=== PATIENT | male | born 1955 | race Hispanic/Latino ===

== ENCOUNTER 2018-05-14 19:54 | Inpatient (IN) | payer BC, SELFPAY ==
[2018-05-14] MEDS ORDERED: ACETAMINOPHEN 500 MG TAB ONE (20:48)
[2018-05-14] MEDS ORDERED: NA CHLORIDE 0.9% 2,000 ML ONE (20:48)
[2018-05-14 20:58] LABS: Urine Blood TRACE (NEG); Urine Glucose 2+ (NEG); Urine Protein 1+ (NEG); Urine pH 5.5 (5.0-7.0)
[2018-05-14 21:07] LABS: Absolute Lymphocytes (CBC) 5.3 K/uL (0.7-4.9); Absolute Monocytes 0.8 K/uL (0.1-1.3); Absolute Neutrophil 5.4 K/uL (1.8-8.0); Basophils % 0.6 % (0-1.3); Hematocrit 41.5 % (39.6-49.0); MPV 9.6 fL (7.6-11.3); Monocytes % 6.6 % (3.3-12.3)
[2018-05-14 21:13] LABS: Urine Bacteria <20 /HPF (NONE SEEN); Urine Culture Reflex Order NOT NEEDED; Urine Mucus LIGHT /HPF (NONE SEEN); Urine RBC <5 /HPF (NONE SEEN); Urine Yeast PRESENT (NONE SEEN)
[2018-05-14 21:17] LABS: Protime INR 1.06
[2018-05-14 21:25] LABS: ALT/SGPT 101 U/L (12-78); AST/SGOT 71 U/L (15-37); Albumin 2.5 g/dL (3.4-5.0); Alkaline Phosphatase 197 U/L (45-117); BUN Blood Urea Nitrogen 19 mg/dL (7-18); Bicarbonate 26 mmol/L (21-32); Bilirubin Direct 0.2 mg/dL (0-0.2); Bilirubin Total 0.9 mg/dL (0.2-1.0); CKMB Creatine Kinase MB < 1.0 ng/mL (0.3-3.6); Creatine Phosphokinase 78 U/L (39-308); Glucose Level 292 mg/dL (74-106); Lipase 165 U/L (73-393); Protein, Total 6.3 g/dL (6.4-8.2); Sodium Level 133 mmol/L (136-145); Troponin (Emerg Dept Use Only) < 0.02 ng/mL (0.0-0.045)
[2018-05-14 21:46] LABS: Blood Morphology Comment NOT SEEN (NOT SEEN); Platelet Estimate ADEQ
--- NOTE | 2018-05-15 00:14 | ER ---
Nurse's Notes [facility] Name: Edu Carmona Age: 62 yrs Sex: Male : 1955 Arrival Date: 05/14/2018 Time: 19:56 Bed 26 Private MD: Diagnosis: Bacteremia Presentation: 05/14 20:09 Presenting complaint: states: my has fever, headache, dizziness and high mg2 blood sugar of 400 mg/dl at home. Transition of care: patient was not received from another setting of care. Onset of symptoms was April 2018. Risk Assessment: Do you want to hurt yourself or someone else? Patient reports no desire to harm self or others. Initial Sepsis Screen: Does the patient meet any 2 criteria? No. Patient's initial sepsis screen is negative. Does the patient have a suspected source of infection? No. Patient's initial sepsis screen is negative. Care prior to arrival: None. 20:09 Method Of Arrival: Ambulatory mg2 20:09 Acuity: DOMINIC 3 mg2 Triage Assessment: 20:27 Headache History: The patient has had previous headaches. General: Appears in no mg2 apparent distress. comfortable, Behavior is calm, cooperative. Pain: Complains of pain in head Pain does not radiate. Pain currently is 8 out of 10 on a pain scale. Quality of pain is described as aching, Pain began gradually, Is intermittent, Also complains of no other associated symptoms. EENT: No signs and/or symptoms were reported regarding the EENT system. Neuro: Level of Consciousness is awake, alert, obeys commands, Oriented to person, place, time, situation. Neuro: Reports dizziness. Cardiovascular: Capillary refill < 3 seconds Patient's skin is warm and dry. Respiratory: Reports cough that is Airway is patent Respiratory effort is even, unlabored, Respiratory pattern is regular, symmetrical. GI: No signs and/or symptoms were reported involving the gastrointestinal system. : No signs and/or symptoms were reported regarding the genitourinary system. Derm: Skin is intact, is healthy with good turgor, Skin is pink, warm \T\ dry. normal. Musculoskeletal: Circulation, motion, and sensation intact. Capillary refill < 3 seconds. Historical: - Allergies: 20:12 No Known Allergies; mg2 - Home Meds: 20:12 Lisinopril Oral [Active]; Metformin Oral [Active]; Indomethacin Oral [Active]; mg2 - PMHx: 20:12 Diabetes - NIDDM; Hypertension; Arthritis; mg2 - PSHx: 20:12 None; mg2 - Immunization history:: Flu vaccine is not up to date. - Social history:: Smoking status: Patient/guardian denies using tobacco, Patient/guardian denies using alcohol, street drugs, IV drugs. - Ebola Screening: : No symptoms or risks identified at this time. Screenin:29 Abuse screen: Denies threats or abuse. Denies injuries from another. Nutritional mg2 screening: No deficits noted. Tuberculosis screening: No symptoms or risk factors identified. Fall Risk None identified. Assessment: 20:29 Reassessment: pls see triage assessment. mg2 05/15 00:47 Reassessment: patient and family informed about the need for hospitalization and he mg2 agreed for the plan. 01:12 Reassessment: COLIN Del Rio was called and said the assigned nurse will call me back [place] [facility] [place] [place]. Vital Signs: 05/14 20:10 BP 117 / 75; Pulse 114; Resp 18; Temp 101.4; Pulse Ox 94% on R/A; Weight 122.47 kg; mg2 Height 5 ft. 8 in. (172.72 cm); Pain 8/10; 22:06 BP 102 / 62; Pulse 88; Resp 18; Temp 98.1(O); Pulse Ox 94% on R/A; mg2 23:38 BP 113 / 56; Pulse 77; Resp 18; Pulse Ox 94% on R/A; Pain 3/10; mg2 05/15 00:46 BP 124 / 64; Pulse 79; Resp 18; Temp 98.2; Pulse Ox 94% on R/A; Pain 0/10; mg2 05/14 20:10 Body Mass Index 41.05 (122.47 kg, 172.72 cm) mg2 ED Course: 05/14 19:56 Patient arrived in ED. am2 20:09 Rolando Merino, COLIN is Primary Nurse. mg2 20:10 Triage completed. mg2 20:22 Bay Rosario PA is PHCP. jr8 20:22 Hugo Loco MD is Attending Physician. jr8 20:27 Patient has correct armband on for positive identification. Bed in low position. Pulse mg2 ox on. NIBP on. 20:29 Arm band placed on. mg2 20:57 No provider procedures requiring assistance completed. EKG done, by ED staff, reviewed mg2 by Bay CANELA. Inserted saline lock: 20 gauge in right forearm, using aseptic technique. Blood collected. 21:10 X-ray completed. Portable x-ray completed in exam room. Patient tolerated procedure tm4 well. 21:11 Chest Single View XRAY In Process Unspecified. EDMS 22:47 CT Abd/Pelvis - W/Contrast In Process Unspecified. EDMS 05/15 00:13 Yamilet Cruz MD is Hospitalizing Provider. jr8 01:19 Patient admitted, IV remains in place. mg2 Administered Medications: 05/14 20:54 Drug: NS 0.9% (30 ml/kg) 30 ml/kg Route: IV; Rate: bolus; Site: right forearm; mg2 22:17 Follow up: Response: No adverse reaction; IV Status: Completed infusion mg2 20:54 Drug: Tylenol 1000 mg Route: PO; mg2 22:17 Follow up: Response: No adverse reaction; Temperature is decreased mg2 05/15 00:45 Drug: Zosyn 3.375 grams Route: IVPB; Infused Over: 60 mins; Site: right forearm; mg2 01:12 Follow up: Response: No adverse reaction; IV Status: Infusion continued upon admission mg2 00:46 Drug: DiFLUcan 150 mg Route: PO; mg2 01:11 Follow up: Response: No adverse reaction mg2 Point of Care Testing: Blood Glucose: 05/14 20:30 Blood Glucose: 279 mg/dL; mg2 Ranges: Outcome: 05/15 00:14 Decision to Hospitalize by Provider. jr8 01:19 Admitted to Med/surg accompanied by tech, via wheelchair, room 211, with chart, Report mg2 called to COLIN Justice 01:19 Condition: stable 01:19 Instructed on the need for admit, Demonstrated understanding of instructions. 01:30 Patient left the ED. mg2 Signatures: Dispatcher [employer] EDNE Megan Raya tm4 Bay Rosario PA PA jr8 Anita Rey 2 Rolando Merino RN RN mg2
--- NOTE | 2018-05-15 00:15 | EDPHYS ---
Physician Documentation [facility] Name: Edu Carmona Age: 62 yrs Sex: Male : 1955 Arrival Date: 05/14/2018 Time: 19:56 Bed 26 Private MD: ED Physician Hugo Loco HPI: 05/14 20:26 This 62 yrs old Male presents to ER via Ambulatory with complaints of jr8 Dizziness, Headache, High Blood Sugar. 20:26 The patient presents with dizziness, generalized weakness. Onset: The symptoms/episode jr8 began/occurred 4 day(s) ago. Associated signs and symptoms: Pertinent positives: headache, fever, elevated blood glucose, Pertinent negatives: abdominal pain, chest pain, nausea, vomiting. Severity of symptoms: At their worst the symptoms were mild. Patient's baseline: Neuro: alert and fully oriented, Motor: no deficits, Ambulation: walks without assistance, Speech: normal, The patient has a previous history of. The patient has not recently seen a physician, and does not have an established primary care provider. Historical: - Allergies: 20:12 No Known Allergies; mg2 - Home Meds: 20:12 Lisinopril Oral [Active]; Metformin Oral [Active]; Indomethacin Oral [Active]; mg2 - PMHx: 20:12 Diabetes - NIDDM; Hypertension; Arthritis; mg2 - PSHx: 20:12 None; mg2 - Immunization history:: Flu vaccine is not up to date. - Social history:: Smoking status: Patient/guardian denies using tobacco, Patient/guardian denies using alcohol, street drugs, IV drugs. - Ebola Screening: : No symptoms or risks identified at this time. ROS: 20:29 Constitutional: Positive for body aches, chills, fatigue, fever, malaise, Negative for jr8 poor PO intake, weight loss. 20:29 Eyes: Negative for blurry vision, visual disturbance. 20:29 ENT: Negative for rhinorrhea, sinus congestion, sinus pain, sore throat. 20:29 Cardiovascular: Negative for chest pain, orthopnea, palpitations. 20:29 Respiratory: Positive for cough, with no reported sputum, Negative for orthopnea, shortness of breath, sputum production, wheezing. 20:29 Abdomen/GI: Positive for increased hunger, Negative for abdominal pain, nausea and vomiting, nausea, vomiting, and diarrhea, anorexia, acute changes. 20:29 : Negative for hematuria, flank pain, burning with urination, difficulty urinating. 20:29 Skin: Negative for cellulitis, rash, acute changes. Exam: 20:31 Constitutional: This is a well developed, well nourished patient who is awake, alert, jr8 and in no acute distress. Head/Face: Normocephalic, atraumatic. Eyes: Pupils equal round and reactive to light, extra-ocular motions intact. Lids and lashes normal. Conjunctiva and sclera are non-icteric and not injected. Cornea within normal limits. Periorbital areas with no swelling, redness, or edema. ENT: Nares patent. No nasal discharge, no septal abnormalities noted. Tympanic membranes are normal and external auditory canals are clear. Oropharynx with no redness, swelling, or masses, exudates, or evidence of obstruction, uvula midline. Mucous membranes moist. Chest/axilla: Normal chest wall appearance and motion. Nontender with no deformity. No lesions are appreciated. Cardiovascular: Regular rate and rhythm with a normal S1 and S2. No gallops, murmurs, or rubs. Normal PMI, no JVD. No pulse deficits. Respiratory: Lungs have equal breath sounds bilaterally, clear to auscultation and percussion. No rales, rhonchi or wheezes noted. No increased work of breathing, no retractions or nasal flaring. Skin: Warm, dry with normal turgor. Normal color with no rashes, no lesions, and no evidence of cellulitis. MS/ Extremity: Pulses equal, no cyanosis. Neurovascular intact. Full, normal range of motion. Neuro: Awake and alert, GCS 15, oriented to person, place, time, and situation. Cranial nerves II-XII grossly intact. Motor strength 5/5 in all extremities. Sensory grossly intact. Cerebellar exam normal. Normal gait. 20:31 Abdomen/GI: Exam negative for distension, guarding, tenderness, Inspection: obese Bowel sounds: normal, in all quadrants. Vital Signs: 20:10 BP 117 / 75; Pulse 114; Resp 18; Temp 101.4; Pulse Ox 94% on R/A; Weight 122.47 kg; mg2 Height 5 ft. 8 in. (172.72 cm); Pain 8/10; 22:06 BP 102 / 62; Pulse 88; Resp 18; Temp 98.1(O); Pulse Ox 94% on R/A; mg2 23:38 BP 113 / 56; Pulse 77; Resp 18; Pulse Ox 94% on R/A; Pain 3/10; mg2 05/15 00:46 BP 124 / 64; Pulse 79; Resp 18; Temp 98.2; Pulse Ox 94% on R/A; Pain 0/10; mg2 05/14 20:10 Body Mass Index 41.05 (122.47 kg, 172.72 cm) mg2 MDM: 05/14 20:52 Patient medically screened. jr8 05/15 00:13 Data reviewed: vital signs, nurses notes, lab test result(s), EKG, radiologic studies, jr8 CT scan, plain films. Data interpreted: Pulse oximetry: on room air is 94 %. Interpretation: normal. Counseling: I had a detailed discussion with the patient and/or guardian regarding: the historical points, exam findings, and any diagnostic results supporting the discharge/admit diagnosis, lab results, radiology results, the need for further work-up and treatment in the hospital. 05/14 20:29 Order name: Basic Metabolic Panel 05/14 20:29 Order name: Blood Culture Adult (2) 05/14 20:29 Order name: CBC with Diff; Complete Time: 21:49 05/14 20:29 Order name: Ckmb; Complete Time: 21:05/14 20:29 Order name: CPK; Complete Time: 21:29 05/14 20:29 Order name: Lactate; Complete Time: 21:23 05/14 20:29 Order name: LFT's; Complete Time: 21:29 05/14 20:29 Order name: Lipase; Complete Time: 21:29 05/14 20:29 Order name: Procalcitonin; Complete Time: 22:24 05/14 20:29 Order name: Protime (+inr); Complete Time: 21:20 05/14 20:29 Order name: Ptt, Activated; Complete Time: 21:20 05/14 20:29 Order name: Troponin (emerg Dept Use Only); Complete Time: 21:29 05/14 20:29 Order name: Urine Microscopic Only; Complete Time: 21:19 05/14 20:29 Order name: Flu; Complete Time: 21:46 05/14 20:29 Order name: Chest Single View XRAY 05/14 20:30 Order name: Basic Metabolic Panel; Complete Time: 21:29 [facility] 05/14 20:30 Order name: Blood Culture [facility] 05/14 20:38 Order name: Urine Dipstick--Ancillary (enter results); Complete Time: 21:02 la1 05/14 21:21 Order name: Manual Differential; Complete Time: 21:49 [facility] 05/14 21:50 Order name: CT Abd/Pelvis - W/Contrast jr8 05/15 00:53 Order name: CBC with Automated Diff [facility] 05/15 00:53 Order name: CBC with Automated Diff [facility] 05/15 00:53 Order name: Comprehensive Metabolic Panel [facility] 05/15 00:53 Order name: Comprehensive Metabolic Panel [facility] 05/15 00:54 Order name: Ebony-Shen Virus Panel [facility] 05/15 00:54 Order name: Ebony-Shen Virus Panel [facility] 05/15 00:55 Order name: Lactate [facility] 05/15 00:55 Order name: Lactate [facility] 05/15 00:55 Order name: Procalcitonin [facility] 05/15 00:55 Order name: Procalcitonin [facility] 05/14 20:29 Order name: Accucheck; Complete Time: 20:54 05/14 20:29 Order name: Cardiac monitoring; Complete Time: 20:54 05/14 20:29 Order name: EKG - Nurse/Tech; Complete Time: 20:54 05/14 20:29 Order name: IV Saline Lock - Large Bore; Complete Time: 20:54 05/14 20:29 Order name: Labs collected and sent; Complete Time: 20:54 05/14 20:29 Order name: O2 Per Protocol; Complete Time: 20:55 05/14 20:29 Order name: O2 Sat Monitoring; Complete Time: 20:55 05/14 20:29 Order name: Urine Dipstick-Ancillary (obtain specimen); Complete Time: 20:55 05/15 00:53 Order name: CONS Pharmacy Consult [facility] 05/15 00:53 Order name: Regular EDWA Administered Medications: 05/14 20:54 Drug: NS 0.9% (30 ml/kg) 30 ml/kg Route: IV; Rate: bolus; Site: right forearm; mg2 22:17 Follow up: Response: No adverse reaction; IV Status: Completed infusion mg2 20:54 Drug: Tylenol 1000 mg Route: PO; mg2 22:17 Follow up: Response: No adverse reaction; Temperature is decreased mg2 05/15 00:45 Drug: Zosyn 3.375 grams Route: IVPB; Infused Over: 60 mins; Site: right forearm; mg2 01:12 Follow up: Response: No adverse reaction; IV Status: Infusion continued upon admission mg2 00:46 Drug: DiFLUcan 150 mg Route: PO; mg2 01:11 Follow up: Response: No adverse reaction mg2 Point of Care Testing: Blood Glucose: 05/14 20:30 Blood Glucose: 279 mg/dL; mg2 Ranges: Critical Glucose Levels:Adult <50 mg/dl or >400 mg/dl <40 mg/dl or >180 mg/dl Disposition: 05/15 01:30 Co-signature as Attending Physician, Hugo Loco MD. humphrey Disposition: 05/15/18 00:14 Hospitalization ordered by Yamilet Cruz for Inpatient Admission. Preliminary diagnosis is Bacteremia. - Bed requested for Telemetry/MedSurg (Inpatient). - Status is Inpatient Admission. mg2 - Condition is Stable. - Problem is new. - Symptoms have improved. UTI on Admission? No Signatures: Dispatcher [employer] EDMS Hugo Loco MD MD [facility] Maria M Malone RN RN bb Bay Rosario PA PA jr8 Rolando Merino RN RN mg2 Corrections: (The following items were deleted from the chart) 01: 00:14 Hospitalization Ordered by Yamilet Cruz MD for Inpatient Admission. Preliminary jr8 diagnosis is Bacteremia. Bed requested for Telemetry/MedSurg (Inpatient). Status is Inpatient Admission. Condition is Stable. Problem is new. Symptoms have improved. UTI on Admission? No. jr8 01:30 01:02 05/15/2018 00:14 Hospitalization Ordered by Yamilet Cruz MD for Inpatient mg2 Admission. Preliminary diagnosis is Bacteremia. Bed requested for Telemetry/MedSurg (Inpatient). Status is Inpatient Admission. Condition is Stable. Problem is new. Symptoms have improved. UTI on Admission? No. jr8
[2018-05-15] MEDS ORDERED: FLUCONAZOLE 100 MG TAB ONE (00:49)
[2018-05-15] MEDS ORDERED: PIPER/TAZO/NS 3.375gm 3.375 GM/100 ML BAG ONE (00:49)
[2018-05-15] MEDS ORDERED: MORPHINE 2 MG/ML SYR IV PRN (00:50)
[2018-05-15] MEDS ORDERED: ONDANSETRON 4 MG/2 ML VIAL IV PRN (00:50)
[2018-05-15] MEDS: NA CHLORIDE 0.9% 1,000 ML IV SCH ×3 (02:02→20:40)
--- NOTE | 2018-05-15 08:24 | P.HP ---
Certification for Inpatient Patient admitted to: Observation With expected LOS: <2 Midnights Patient will require the following post-hospital care: None Practitioner: I am a practitioner with admitting privileges, knowledge of patient current condition, hospital course, and medical plan of care. Services: Services provided to patient in accordance with Admission requirements found in Title 42 Section 412.3 of the Code of Federal Regulations Patient History Date of Service: 05/15/18 History of Present Illness: Patient is a 62-year-old gentleman who came to the hospital with fever and headache. Patient also has some dizziness but his blood sugars as well also been elevated. He was having a lot of generalized complaints so he came into the hospital for further evaluation. In the emergency room he had lab test performed. He also has had a CT of the abdomen and pelvis. Patient had elevation of the liver and solids as well. UA was unremarkable except for ease. Patient's CT of the abdomen also has some questionable lesions of the spleen. At this time will go ahead and admit the patient and rule out any infectious etiologies. Will also need to follow-up with urology for possible cystoscopy. EBV titer as well. Patient's was with him and translates. He stated he was very tired and was falling asleep. Clinically he looks to be asymptomatic from the findings on the CT scan. He will be admitted for observation. Allergies No Known Allergies Allergy (Verified 05/15/18 01:47) Home Medications: Indomethacin [Indocin] 25 mg PO DAILY 05/15/18 Lisinopril [Prinivil] 10 mg PO DAILY 05/15/18 Metformin HCl [Glucophage] 1 tab PO BID 05/15/18 - Past Medical/Surgical History Has patient received pneumonia vaccine in the past: No Diabetic: Yes -: diabetes -: hypertension -: arthritis Past Surgical History: Patient denies surgical history - Family History Father Family History: Reviewed- Non-Contributory - Social History Smoking Status: Never smoker Alcohol use: No CD- Drugs: No Caffeine use: Yes Place of Residence: Home Review of Systems 10-point ROS is otherwise unremarkable Physical Examination - Vital Signs Temperature: 99.4 F Blood Pressure: 122/64 Pulse: 68 Respirations: 18 Pulse Ox (%): 94 - Physical Exam General: Alert, In no apparent distress, Oriented x3 HEENT: Atraumatic, PERRLA, Mucous membr. moist/pink, EOMI, Sclerae nonicteric Neck: Supple, 2+ carotid pulse no bruit, No LAD, Without JVD or thyroid abnormality Respiratory: Clear to auscultation bilaterally, Normal air movement Cardiovascular: Regular rate/rhythm, Normal S1 S2 Gastrointestinal: Normal bowel sounds, Soft and benign, Non-distended, No tenderness Musculoskeletal: No clubbing, No swelling, No tenderness Integumentary: No rashes Neurological: Normal gait, Normal speech, Normal strength at 5/5 x4 extr, Normal tone, Sensation intact, Cranial nerves 3-12 intact, Normal affect Lymphatics: No axilla or inguinal lymphadenopathy - Studies Laboratory Data (last 24 hrs) 05/14/18 20:40: PT 12.5, INR 1.06, APTT 28.8 05/14/18 20:40: WBC 11.5 H, Hgb 13.8, Hct 41.5, Plt Count 219 05/14/18 20:40: Sodium 133 L, Potassium 4.0, BUN 19 H, Creatinine 0.96, Glucose 292 H, Total Bilirubin 0.9, AST 71 H, ALT 101 H, Alkaline Phosphatase 197 H, Lipase 165 Microbiology Data (last 24 hrs): 05/14/18 20:40 Nasopharnyx Influenza Type A Antigen Screen - Final 05/14/18 20:40 Nasopharnyx Influenza Type B Antigen Screen - Final Assessment & Plan - Problems (Diagnosis) (1) Generalized weakness Current Visit: Yes Status: Acute (2) Fever Current Visit: Yes Status: Acute (3) Elevated liver enzymes Current Visit: Yes Status: Acute (4) Splenic lesion Current Visit: Yes Status: Acute - Plan Plan: 1. IV hydration 2. Panculture 3. Antibiotics if fever 4. Further outpatient follow-up for bilateral inflammation 5. Further workup for splenic lesions can probably be done as an outpatient. Dickens make sure there is no septic emboli and make sure blood cultures are negative 6. GI and DVT prophylaxis Discharge Plan: Home Plan to discharge in: 24 Hours - Advance Directives Does patient have a Living Will: No Does patient have a Durable POA for Healthcare: No - Code Status/Comfort Care Code Status Assessed: Yes Code Status: Full Code Critical Care: No Time Spent Managing PTS Care (In Minutes): 45
--- NOTE | 2018-05-15 08:43 | RAD REPORT ---
EXAM DESCRIPTION: RAD - Chest Single View - 05/14/2018 9:13 pm CLINICAL HISTORY: Fever COMPARISON: None. TECHNIQUE: AP portable chest image was obtained 2109 hours . FINDINGS: Lungs are clear. Heart and vasculature are normal. No measurable pleural effusion and no p neumothorax. No acute bony abnormality seen. No acute aortic findings suspected. IMPRESSION: No acute cardiopulmonary process.
[2018-05-15] MEDS ORDERED: INFLUENZA VACCINE (for 3y+) 0.5 ML DOSE IMVAC ONE (09:00)
[2018-05-15] MEDS: ACETAMINOPHEN 500 MG TAB PO PRN ×2 (09:55→20:39)
[2018-05-15 11:55] LABS: Absolute Lymphocytes (CBC) 3.6 K/uL (0.7-4.9); Absolute Monocytes 0.8 K/uL (0.1-1.3); Absolute Neutrophil 5.8 K/uL (1.8-8.0); Basophils % 0.5 % (0-1.3); Hematocrit 37.2 % (39.6-49.0); Lymphocytes % 35.2 % (15.3-44.8); MPV 9.1 fL (7.6-11.3); RBC Red Blood Cell Count 4.42 M/uL (4.33-5.43)
[2018-05-15] MEDS: PIPER/TAZO/NS 3.375gm 3.375 GM/100 ML BAG IVPB SCH ×2 (12:03→20:39)
[2018-05-15 12:16] LABS: ALT/SGPT 83 U/L (12-78); AST/SGOT 48 U/L (15-37); Albumin 2.3 g/dL (3.4-5.0); Alkaline Phosphatase 175 U/L (45-117); BUN Blood Urea Nitrogen 13 mg/dL (7-18); Bicarbonate 26 mmol/L (21-32); Bilirubin Total 0.8 mg/dL (0.2-1.0); Glucose Level 336 mg/dL (74-106); Potassium 3.6 mmol/L (3.5-5.1); Protein, Total 5.6 g/dL (6.4-8.2); Sodium Level 136 mmol/L (136-145)
[2018-05-15 12:35] LABS: Barbiturates NEGATIVE (NEGATIVE); Benzodiazepines NEGATIVE (NEGATIVE); Cocaine NEGATIVE (NEGATIVE); METHAMPHETAM NEGATIVE (NEGATIVE); Methadone NEGATIVE (NEGATIVE); Opiates NEGATIVE (NEGATIVE); Phencyclidine NEGATIVE (NEGATIVE); THC Cannibis NEGATIVE (NEGATIVE)
[2018-05-15] MEDS ORDERED: D50W 25 GM/50 ML SYRINGE IV PRN (14:43)
[2018-05-15] MEDS ORDERED: GLUCAGON 1 MG/VIAL IM PRN (14:43)
[2018-05-15] MEDS: INSULIN -REGULAR HUMAN 50 UNIT/0.5 ML ML SQ SCH ×2 (17:46→20:40)
--- NOTE | 2018-05-15 20:44 | RAD REPORT ---
EXAM DESCRIPTION: US - Abdomen Exam Complete - 05/15/2018 8:07 pm CLINICAL HISTORY: Abnormal liver function studies, abdominal pain COMPARISON: May 14 FINDINGS: Gallbladder size is normal. No gallstones, wall thickening or pericholecystic fluid. Commo n bile duct is normal with no common duct stone identified. Liver is 17 cm in maximum dimension. No c apsular nodularity or focal liver lesion identifiable. Spleen is 14 cm in maximum dimension. Splenic parenchyma shows some heterogeneity which would match the CT finding. Pattern is nonspecific. Infecti ous process is possible. Malignancy is unlikely given the absence of any additional malignancy findin gs. The pancreas is partially obscured. No abnormality seen on the prior day CT study. No hydronephrosis or suspicious mass in either kidney. Aorta and IVC show no suspicious findings. No ascites or bulky lymphadenopathy. IMPRESSION: No focal liver abnormality identified. Heterogeneity of the splenic parenchyma. Pattern is nonspecific with long-term significance doubtful. Infectious etiology is possible but felt to be relatively low in likelihood.
[2018-05-16] MEDS: ACETAMINOPHEN 500 MG TAB PO PRN ×3 (03:49→22:03)
[2018-05-16 06:29] LABS: Absolute Lymphocytes (CBC) 3.3 K/uL (0.7-4.9); Absolute Monocytes 0.8 K/uL (0.1-1.3); Absolute Neutrophil 5.8 K/uL (1.8-8.0); Basophils % 0.2 % (0-1.3); Hematocrit 37.9 % (39.6-49.0); Lymphocytes % 33.3 % (15.3-44.8); MPV 9.6 fL (7.6-11.3)
[2018-05-16 06:48] LABS: ALT/SGPT 72 U/L (12-78); AST/SGOT 38 U/L (15-37); Albumin 2.2 g/dL (3.4-5.0); Alkaline Phosphatase 187 U/L (45-117); BUN Blood Urea Nitrogen 9 mg/dL (7-18); Bicarbonate 26 mmol/L (21-32); Glucose Level 233 mg/dL (74-106); Potassium 3.4 mmol/L (3.5-5.1); Protein, Total 5.7 g/dL (6.4-8.2); Sodium Level 137 mmol/L (136-145)
[2018-05-16] MEDS ORDERED: POTASSIUM 25 MEQ EFFERV TAB PO ONE (08:10)
[2018-05-16] MEDS: INSULIN -REGULAR HUMAN 50 UNIT/0.5 ML ML SQ SCH ×4 (08:55→22:02)
[2018-05-16] MEDS: NA CHLORIDE 0.9% 1,000 ML IV SCH ×3 (08:56→22:01)
[2018-05-16] MEDS: PIPER/TAZO/NS 3.375gm 3.375 GM/100 ML BAG IVPB SCH ×2 (08:56→22:00)
--- NOTE | 2018-05-16 11:34 | RAD REPORT ---
EXAM DESCRIPTION: US[facility] Ltd05/16/2018 11:27 am CLINICAL HISTORY: left leg pain . COMPARISON: None. FINDINGS: Left common femoral, superficial femoral, popliteal and posterior tibial veins are compre ssible and demonstrate augmentation. Doppler demonstrates good flow. IMPRESSION: No evidence of deep venous thrombosis involving the left lower extremity.
--- NOTE | 2018-05-16 12:14 | RAD REPORT ---
EXAM DESCRIPTION: CT - Abdomen Pelvis W Contrast - 05/15/2018 12:06 am CLINICAL HISTORY: The patient is 62 years old and is Male; iv only;Abd pain TECHNIQUE: Axial computed tomography images of the abdomen and pelvis with intravenous contrast. S agittal and coronal reformatted images were created and reviewed. This CT exam was performed using one or more of the following dose reduction techniques: automated exposure control, adjustment of t he mA and/or kV according to patient size, and/or use of iterative reconstruction technique. COMPARISON: No relevant prior studies available. FINDINGS: LUNG BASES: Unremarkable. No mass. No consolidation. ABDOMEN: LIVER: There is a diffuse decrease in hepatic parenchymal density, consistent with fatty infiltr ation. GALLBLADDER AND BILE DUCTS: No calcified stones. No ductal dilation. PANCREAS: No ductal dilation. No mass. SPLEEN: The spleen is heterogeneous with multiple foci of low-attenuation scattered throughout. ADRENALS: Unremarkable. No mass. KIDNEYS AND URETERS: Unremarkable. No solid mass. No hydronephrosis. STOMACH AND BOWEL: The stomach is distended with food contents. The small bowel is normal in henry iber. Stool is present throughout the colon. There is no mucosal thickening or evidence of bowel obst ruction. PELVIS: APPENDIX: The appendix is normal in caliber without surrounding inflammation. BLADDER: The bladder is well distended. Mild bladder wall thickening with minimal inflammatory stranding, specifically at the level of the dome of the bladder is present. REPRODUCTIVE: Unremarkable as visualized. ABDOMEN and PELVIS: INTRAPERITONEAL SPACE: Unremarkable. No free air. No significant fluid collection. BONES/JOINTS: No acute fracture. SOFT TISSUES: There are small bilateral fat containing inguinal hernias. VASCULATURE: Atherosclerosis of the vasculature is present. The vessels are normal in course and caliber. No abdominal aortic aneurysm. LYMPH NODES: Unremarkable. No enlarged lymph nodes. IMPRESSION: 1. Multiple scattered low attenuating ill-defined foci within the spleen. These findin gs are nonspecific but may be secondary to an infectious versus a neoplastic process. Correlation wit h patient's laboratory values and further evaluation/follow-up is recommended. 2. Asymmetric bladder wall thickening with mild surrounding stranding. Findings may be secondary to an infectious process, further evaluation/follow-up is recommended to exclude underlying pathologic process. A discrete mass is not seen. 3. Moderate stool burden without obstruction. Normal appendix. Electronically signed by: Suha Tobin MD 05/14/2018 11:07 PM CDT Due to temporary technical issues with the PACS/Fluency reporting system, reports are being signed by the in house radiologist as a courtesy to ensure prompt reporting. The interpreting radiologist is f ully responsible for the content of the report.
--- NOTE | 2018-05-16 16:00 | P.PN ---
Subjective Date of Service: 05/16/18 Chief Complaint: Generalized weakness and he was Patient seen and examined with RN, the overnight events , s still spiking fever, Followup HIV test f/up ECHO ID and GI consulted Review of Systems 10-point ROS is otherwise unremarkable General: Fever Physical Examination - Vital Signs Temperature: 98.6 F Blood Pressure: 137/65 Pulse: 71 Respirations: 20 Pulse Ox (%): 91 - Physical Exam General: Alert, Oriented x3 HEENT: Atraumatic, Normocephalic, PERRLA Neck: Supple, JVD not distended Respiratory: Clear to auscultation bilaterally Cardiovascular: No edema, Regular rate/rhythm, Normal S1 S2, No murmurs Gastrointestinal: Normal bowel sounds, Soft and benign, Non-distended Integumentary: No rashes Neurological: Normal strength at 5/5 x4 extr - Studies Laboratory Data (last 24 hrs) 05/16/18 05:53: Sodium 137, Potassium 3.4 L, BUN 9, Creatinine 0.71, Glucose 233 H, Total Bilirubin 1.0, AST 38 H, ALT 72, Alkaline Phosphatase 187 H 05/16/18 05:53: WBC 10.0, Hgb 12.7 L, Hct 37.9 L, Plt Count 224 Assessment And Plan - Current Problems (Diagnosis) (1) Elevated liver enzymes Current Visit: Yes Status: Acute (2) Fever Current Visit: Yes Status: Acute (3) Generalized weakness Current Visit: Yes Status: Acute (4) Splenic lesion Current Visit: Yes Status: Acute - Plan Assessment and plan Fevers unknown reason Continue antibiotics for now Follow up cultures Splenic lesions could be septic emboli vs metastatic lesions vs other causes f/up ECHO to r/o endocarditis f/up EBV virus GI and ID consulted elevated liver enzymes f/up hepatitis profile htn and DM continue home meds DVt ppx
--- NOTE | 2018-05-16 20:55 | CON ---
History Of Present Illness: This is a 62-year-old male. The patient is coming in with fever, chills , and headaches. Denies any nausea, vomiting. The patient on CT scan also shown to have lesions on his spleen area and possible infection in the bladder. The patient denies any abdominal pain, chest pain, shortness of breath or constipation, diarrhea. Past Medical History: Includes obesity, diabetes mellitus, arthritis. Past Surgical History: None. Social History: Nonsmoker, nondrinker. Family History: Noncontributory. Medications: Zosyn. See MARs for other medication. Allergies: NO KNOWN DRUG ALLERGIES. Review of Systems: A 10-point review was performed. Physical Examination: General: This is a 62-year-old male, lying in bed, not in any acute cardiopulmonary distress. Vital Signs: Temperature 98, pulse 71, respirations 16, blood pressure 137/65. HEENT: Unremarkable. Neck: Supple. Lungs: Basal crackles. Heart: S1, S2. Regular. Abdomen: Soft, nontender. Bowel sounds present. Extremity: Trace edema. Laboratory Data: Shows WBC 10,000 down from 11.5, hemoglobin 12.7, platelets 224. Chemistry shows s odium 137, potassium 3.4, chloride 103, bicarb 26, BUN 9, creatinine 0.7, glucose 233. Micro data: Blood cultures no growth for [address] abdomen as described. Chest x-ray unremarkab le. Assessment And Plan: A 62-year-old male coming in with fever and headache and chills. Possible bact erial versus viral infections. I agree with HIV workup. Continue empiric antibiotic. Pending cultu re results. We will follow the patient closely. Thank you for consult. SEBASTIÁN/CHRISTOPHER Voice ID: [id number] Report ID: [id number]
[2018-05-16 22:49] LABS: Urine Appearance CLEAR; Urine Bilirubin NEGATIVE (NEG); Urine Blood NEGATIVE (NEG); Urine Color YELLOW; Urine Glucose 3+ (NEG); Urine Protein NEGATIVE (NEG); Urine Specific Gravity 1.025 (1.005-1.030)
[2018-05-16 22:57] LABS: Urine Microscopic Reflex NO UMIC
[2018-05-17] MEDS: ACETAMINOPHEN 500 MG TAB PO PRN ×2 (06:26→22:20)
[2018-05-17 06:31] LABS: Absolute Lymphocytes (CBC) 2.7 K/uL (0.7-4.9); Absolute Monocytes 0.6 K/uL (0.1-1.3); Absolute Neutrophil 3.4 K/uL (1.8-8.0); Basophils % 0.2 % (0-1.3); Eosinophils % 0.4 % (0-4.4); Hematocrit 37.8 % (39.6-49.0); Lymphocytes % 40.1 % (15.3-44.8); MPV 9.5 fL (7.6-11.3); Monocytes % 9.5 % (3.3-12.3); RBC Red Blood Cell Count 4.46 M/uL (4.33-5.43)
[2018-05-17 06:46] LABS: ALT/SGPT 61 U/L (12-78); AST/SGOT 33 U/L (15-37); Albumin 2.1 g/dL (3.4-5.0); Alkaline Phosphatase 173 U/L (45-117); BUN Blood Urea Nitrogen 10 mg/dL (7-18); Bicarbonate 29 mmol/L (21-32); Bilirubin Total 0.7 mg/dL (0.2-1.0); Glucose Level 196 mg/dL (74-106); Potassium 4.1 mmol/L (3.5-5.1); Protein, Total 5.9 g/dL (6.4-8.2); Sodium Level 141 mmol/L (136-145)
[2018-05-17] MEDS: INSULIN -REGULAR HUMAN 50 UNIT/0.5 ML ML SQ SCH ×4 (07:30→20:55)
[2018-05-17] MEDS ORDERED: VANCOMYCIN 1.25 GM in NA CHLORIDE 0.9% 250 ML IVPB SCH (08:00)
[2018-05-17] MEDS: PIPER/TAZO/NS 3.375gm 3.375 GM/100 ML BAG IVPB SCH ×2 (09:08→20:54)
[2018-05-17] MEDS: VANCOMYCIN 2 GM in NA CHLORIDE 0.9% 500 ML IVPB SCH ×2 (09:10→20:53)
[2018-05-17] MEDS: NA CHLORIDE 0.9% 1,000 ML IV SCH ×2 (13:00→22:20)
--- NOTE | 2018-05-17 15:21 | P.PN ---
Subjective Date of Service: 05/17/18 Chief Complaint: Generalized weakness and he was Patient seen and examined ,still spiking fever vancomycin added BCx -ve s o far f/up HIV,hepatits profile,EBV,CMV serology f/u echo to r/o endocarditis Review of Systems 10-point ROS is otherwise unremarkable Physical Examination - Vital Signs Temperature: 97.9 F Blood Pressure: 115/65 Pulse: 66 Respirations: 20 Pulse Ox (%): 92 - Physical Exam General: Alert, Oriented x3 HEENT: Atraumatic, Normocephalic, PERRLA Neck: Supple, JVD not distended Respiratory: Clear to auscultation bilaterally, Normal air movement Cardiovascular: Regular rate/rhythm, Normal S1 S2 Gastrointestinal: Normal bowel sounds, Soft and benign, Non-distended Musculoskeletal: No clubbing, No swelling Integumentary: No rashes Neurological: Normal strength at 5/5 x4 extr Assessment And Plan - Current Problems (Diagnosis) (1) Elevated liver enzymes Current Visit: Yes Status: Acute (2) Fever Current Visit: Yes Status: Acute (3) Generalized weakness Current Visit: Yes Status: Acute (4) Splenic lesion Current Visit: Yes Status: Acute - Plan Assessment and plan Fevers unknown reason Continue antibiotics for now Follow up cultures Splenic lesions could be septic emboli vs metastatic lesions vs other causes f/up ECHO to r/o endocarditis f/up EBV virus elevated liver enzymes-trending down f/up hepatitis profile DVt ppx Discharge Plan: Home Plan to discharge in: 48 Hours
--- NOTE | 2018-05-17 17:17 | ECHO ---
HEIGHT: 5 ft 7 in WEIGHT: 246 lb 8 oz DATE OF STUDY: 05/17/[address]: Billie Velásquez MD 2-DIMENSIONAL: YES M.MODE: YES DOPPLER: YES COLOR FLOW: YES TDS: NO PORTABLE: NO DEFINITY: NO BUBBLE STUDY: NO DIAGNOSIS: RULE OUT ENDOCARDITIS CARDIAC HISTORY: CATHERIZATION: NO SURGERY: NO PROSTHETIC VALVE: NO PACEMAKER: NO MEASUREMENTS (cm) DIASTOLIC (NORMALS) SYSTOLIC (NORMALS) IVSd 1.1 (0.6-1.2) LA Diam 4.1 (1.9-4.0) LVEF 54% LVIDd 5.0 (3.5-5.7) LVIDs 3.6 (2.0-3.5) %FS 28% LVPWd 1.1 (0.6-1.2) Ao Diam 3.1 (2.0-3.7) 2 DIMENSIONAL ASSESSMENT: RIGHT ATRIUM: NORMAL LEFT ATRIUM: DILATED RIGHT VENTRICLE: NORMAL LEFT VENTRICLE: NORMAL TRICUSPID VALVE: NORMAL MITRAL VALVE: NORMAL PULMONIC VALVE: NORMAL AORTIC VALVE: NORMAL PERICARDIAL EFFUSION: NONE AORTIC ROOT: NORMAL LEFT VENTRICULAR WALL MOTION: NORMAL DOPPLER/COLOR FLOW: MILD MITRAL REGURGITATION. COMMENTS: NORMAL LEFT VENTRICULAR EJECTION FRACTION. DILATED LEFT ATRIUM. MILD MITRAL REGURGITATION. TECHNOLOGIST: Halle ELIZONDO
[2018-05-18 06:26] LABS: Absolute Lymphocytes (CBC) 2.7 K/uL (0.7-4.9); Absolute Monocytes 0.5 K/uL (0.1-1.3); Absolute Neutrophil 3.1 K/uL (1.8-8.0); Basophils % 0.3 % (0-1.3); Eosinophils % 0.9 % (0-4.4); Hematocrit 38.2 % (39.6-49.0); MPV 9.2 fL (7.6-11.3); Monocytes % 7.7 % (3.3-12.3)
[2018-05-18 07:03] LABS: ALT/SGPT 62 U/L (12-78); AST/SGOT 40 U/L (15-37); Albumin 2.2 g/dL (3.4-5.0); Alkaline Phosphatase 174 U/L (45-117); BUN Blood Urea Nitrogen 8 mg/dL (7-18); Bicarbonate 28 mmol/L (21-32); Bilirubin Total 0.6 mg/dL (0.2-1.0); Glucose Level 172 mg/dL (74-106); Potassium 3.7 mmol/L (3.5-5.1); Protein, Total 6.1 g/dL (6.4-8.2); Sodium Level 140 mmol/L (136-145)
[2018-05-18] MEDS: INSULIN -REGULAR HUMAN 50 UNIT/0.5 ML ML SQ SCH ×2 (07:30→12:03)
[2018-05-18] MEDS: VANCOMYCIN 2 GM in NA CHLORIDE 0.9% 500 ML IVPB SCH (08:08)
[2018-05-18] MEDS: NA CHLORIDE 0.9% 1,000 ML IV SCH (09:00)
[2018-05-18 09:16] LABS: HIV AG/AB 4TH GEN Non-reactive (Non-reactive)
[2018-05-18] MEDS: PIPER/TAZO/NS 3.375gm 3.375 GM/100 ML BAG IVPB SCH (09:31)
--- NOTE | 2018-05-18 12:28 | P.PN ---
Subjective Date of Service: 05/18/18 Chief Complaint: Generalized weakness and abdominal pain Subjective: Improving (No abdominal pain. He feels better. He reports viral type infection ~ 1 week ago; ID is following patient as well.) Review of Systems 10-point ROS is otherwise unremarkable General: Weakness (Improved. ) Physical Examination - Vital Signs Temperature: 97.6 F Blood Pressure: 141/73 Pulse: 70 Respirations: 16 Pulse Ox (%): 95 - Physical Exam General: Alert, In no apparent distress, Oriented x3, Cooperative HEENT: Atraumatic, Normocephalic, PERRLA, EOMI Neck: Supple Respiratory: Normal air movement Cardiovascular: Normal pulses Gastrointestinal: Soft and benign, No tenderness, No rebound, No guarding Neurological: Normal speech, Normal strength at 5/5 x4 extr Assessment And Plan - Current Problems (Diagnosis) (1) Abnormal CT of the abdomen Current Visit: Yes Status: Acute Comment: Probable viral infection last week with declining liver chemistries in hospital. Elevated Lymphocytes with WBC. (2) Elevated liver enzymes Current Visit: Yes Status: Acute (3) Fever Current Visit: Yes Status: Acute (4) Generalized weakness Current Visit: Yes Status: Acute (5) Splenic lesion Current Visit: Yes Status: Acute - Plan REC: 1) await labs (e.g. EBV, CMV, HSV titers) 2) continue supportive care 3) GI clinic f/u in 1 week with liver panel and review of hospital labs pending
--- NOTE | 2018-05-18 16:36 | PN ---
Subjective: The patient is lying in bed. Denies any headache, nausea, vomiting, chest pain, abdomin al pain, constipation, or diarrhea. Objective: Vital Signs: Temperature 97.6, pulse 70, respirations 16, blood pressure 141/73. Lungs: Clear to auscultation. Heart: S1, S2. Regular. Abdomen: Soft. Bowel sounds present. Extremities: No edema. Laboratory Data: Shows WBC 6.4, hemoglobin 12.6, platelets 280. Chemistry shows sodium 140, potassi um 3.7, chloride 105, bicarb 28, BUN 8, creatinine 0.6, glucose is 172. Assessment/plan: Viral syndrome. The patient is doing better. Splenic lesions, needs to have a fol lowup as outpatient. Continue supportive care. The patient can be taken off the antibiotics before discharge. We will follow the patient as needed. NF/MODL Voice ID: [id number] Report ID: [id number]
--- NOTE | 2018-05-18 17:02 | P.DS ---
Admission Date: 05/16/18 Discharge Date: 05/18/18 Primary Care Provider: None Disposition: ROUTINE DISCHARGE Discharge Condition: GOOD Reason for Admission: Generalized weakness and abdominal pain Consultations: GI-Dr. Graham Infectious disease-Dr. Todd Procedures: CT Scan: IMPRESSION: 1. Multiple scattered low attenuating ill-defined foci within the spleen. These findings are nonspecific but may be secondary to an infectious versus a neoplastic process. Correlation with patient's laboratory values and further evaluation/follow-up is recommended. 2. Asymmetric bladder wall thickening with mild surrounding stranding. Findings may be secondary to an infectious process, further evaluation/follow- up is recommended to exclude underlying pathologic process. A discrete mass is not seen. 3. Moderate stool burden without obstruction. Normal appendix. Abdomen US: FINDINGS: Gallbladder size is normal. No gallstones, wall thickening or pericholecystic fluid. Common bile duct is normal with no common duct stone identified. Liver is 17 cm in maximum dimension. No capsular nodularity or focal liver lesion identifiable. Spleen is 14 cm in maximum dimension. Splenic parenchyma shows some heterogeneity which would match the CT finding. Pattern is nonspecific. Infectious process is possible. Malignancy is unlikely given the absence of any additional malignancy findings. The pancreas is partially obscured. No abnormality seen on the prior day CT study. No hydronephrosis or suspicious mass in either kidney. Aorta and IVC show no suspicious findings. No ascites or bulky lymphadenopathy. IMPRESSION: No focal liver abnormality identified. Heterogeneity of the splenic parenchyma. Pattern is nonspecific with long-term significance doubtful. Infectious etiology is possible but felt to be relatively low in likelihood. Echocardiogram: EF 54% LEFT VENTRICULAR WALL MOTION: NORMAL DOPPLER/COLOR FLOW: MILD MITRAL REGURGITATION. COMMENTS: NORMAL LEFT VENTRICULAR EJECTION FRACTION. DILATED LEFT ATRIUM. MILD MITRAL REGURGITATION. Venous Doppler: FINDINGS: Left common femoral, superficial femoral, popliteal and posterior tibial veins are compressible and demonstrate augmentation. Doppler demonstrates good flow. IMPRESSION: No evidence of deep venous thrombosis involving the left lower extremity. Medical Problem List: Fever of unknown etiology complicated with splenic lesions Diabetes mellitus type 2 Hypertension Obesity, BMI 38.6 Brief History of Present Illness: 62-year-old male presented with fever. CT scan revealed splenic lesions. Patient was admitted for further evaluation and treatment. Hospital Course: Patient presented with fever. CT scan revealed splenic lesions. Fever likely related to viral illness. Patient seen and evaluated by infectious disease and GI. Blood cultures negative. HIV negative. Other viral lab pending. This can be followed up by his PCP who he will plan to establish care tomorrow. Patient received IV antibiotic therapy during his stay. At discharge he is doing well, no fever at this time. No antibiotics required at discharge as recommended by infectious disease. Recommend to follow up with PCP tomorrow to follow up lab. Patient may require biopsy of spleen to further evaluate the lesions. This will have to be done at a higher level center likely with interventional radiology. This can be further addressed by his PCP. Patient has diabetes type 2. A1c elevated at 13.9. At discharge metformin has been increased to 1000 mg 1 pill twice daily. Recommend to maintain blood sugars less 140 fasting and less than 200 after meals. Patient may require further medication for better control. Patient may also require insulin therapy. This can be further addressed by his PCP. Patient has hypertension. At discharge he will continue with lisinopril 10 mg daily. Further adjustment can be done by his PCP. Vital Signs/Physical Exam: Temp Pulse Resp BP Pulse Ox 97.6 F 70 16 141/73 H 95 05/18/18 12:28 05/18/18 12:28 05/18/18 12:28 05/18/18 12:28 05/18/18 12:28 General: Alert, In no apparent distress, Oriented x3, Cooperative HEENT: Atraumatic Neck: Supple Respiratory: Clear to auscultation bilaterally, Normal air movement Cardiovascular: Normal pulses, Regular rate/rhythm Gastrointestinal: Normal bowel sounds, Soft and benign, Non-distended, No tenderness, No masses, No rebound, No guarding Musculoskeletal: No erythema, No tenderness, No warmth Integumentary: No tenderness/swelling, No erythema, No warmth, No cyanosis Neurological: Normal speech, Normal strength at 5/5 x4 extr, Normal tone, Normal affect Laboratory Data at Discharge: WBC 6.4 K/uL (4.3-10.9) 05/18/18 05:30 Hgb 12.6 g/dL (13.6-17.9) L 05/18/18 05:30 Hct 38.2 % (39.6-49.0) L 05/18/18 05:30 Plt Count 280 K/uL (152-406) 05/18/18 05:30 PT 12.5 SECONDS (9.5-12.5) 05/14/18 20:40 INR 1.06 05/14/18 20:40 APTT 28.8 SECONDS (24.3-36.9) 05/14/18 20:40 Sodium 140 mmol/L (136-145) 05/18/18 05:30 Potassium 3.7 mmol/L (3.5-5.1) 05/18/18 05:30 BUN 8 mg/dL (7-18) 05/18/18 05:30 Creatinine 0.60 mg/dL (0.55-1.3) 05/18/18 05:30 Glucose 172 mg/dL (74-106) H 05/18/18 05:30 Total Bilirubin 0.6 mg/dL (0.2-1.0) 05/18/18 05:30 AST 40 U/L (15-37) H 05/18/18 05:30 ALT 62 U/L (12-78) 05/18/18 05:30 Alkaline Phosphatase 174 U/L (45-117) H 05/18/18 05:30 Lipase 165 U/L (73-393) 05/14/18 20:40 Home Medications: Lisinopril [Prinivil*] 10 mg PO DAILY 05/15/18 Metformin HCl 1,000 mg PO BID #60 tablet 05/18/18 New Medications: Metformin HCl 1,000 mg PO BID #60 tablet Patient Discharge Instructions: 1. Patient will establish care with Dr. Young tomorrow at 11:00 a.m. to follow up this hospitalization. 2. Patient presented with fever. CT scan revealed splenic lesions. Fever likely related to viral illness. Patient seen and evaluated by infectious disease. Blood cultures negative. HIV negative. Other viral lab pending. This can be followed up by his PCP. Patient received IV antibiotic therapy during his stay. At discharge he is doing well, no fever at this time. No antibiotics required at discharge. Recommend to follow up with PCP tomorrow. Patient may require biopsy of spleen to further evaluate the lesions. This will have to be done at a higher level center likely with interventional radiology. This can be further addressed by his PCP. 3. Patient has diabetes type 2. A1c elevated at 13.9. At discharge metformin has been increased to 1000 mg 1 pill twice daily. Recommend to maintain blood sugars less 140 fasting and less than 200 after meals. Patient may require further medication for better control. Patient may also require insulin therapy. This can be further addressed by his PCP. 4. Patient has hypertension. At discharge he will continue with lisinopril 10 mg daily. Further adjustment can be done by his PCP. Diet: ADA Activity: Ad sobeida Followup: Navarro Young MD [ACTIVE - CAN ADMIT] - Time spent managing pt's care (in minutes): 55
[2018-05-19] MEDS ORDERED: LISINOPRIL 10 MG TAB PO SCH (09:00)
[2018-05-19 13:08] LABS: Hepatitis A IgM Antibody Nonreactive
[2018-05-20 10:55] LABS: HIV AG/AB 4TH GEN Non-reactive (Non-reactive)
[2018-05-21 18:48] LABS: Hepatitis C Virus RNA (PCR)log <1.18 log IU/mL
--- NOTE | 2018-05-24 10:56 | EKG ---
Test Date: 2018-05-14 Test Time: 20:44:48 Cartridge Maker: RUDDY MEASUREMENT RESULTS: Intervals: Rate: 106 ME: 128 QRSD: 90 QT: 314 QTc: 417 [place]: P: 51 ME: 128 QRS: 77 T: 54 INTERPRETIVE STATEMENTS: Sinus tachycardia Otherwise normal ECG No previous ECG available for comparison Electronically Signed On 05-15-18 10:33:43 CDT by Robert Salamanca
== END 2018-05-18 14:25 | disposition home or self-care (01) | DRG 866 ==
LOC: ER 19:54 → ERHOLD 05-15 01:16 → 2ND 05-15 01:19 → OBSVTOIN 05-16 09:30
PROVIDERS: ADMIT Hospitalist; ATTEND Family Medicine
DX: B34.9 Viral infection, unspecified (principal); D73.89 Other diseases of spleen; E11.9 Type 2 diabetes mellitus without complications; I10 Essential (primary) hypertension; M19.90 Unspecified osteoarthritis, unspecified site; R53.1 Weakness; R50.9 Fever, unspecified; E66.9 Obesity, unspecified; Z68.38 Body mass index [BMI] 38.0-38.9, adult
CPT/HCPCS: 36415; 71045; 74177; 76700; 80048; 80053; 80076; 80307; 81003; 81015; 82550; 82553; 82962; 83036; 83605; 83615; 83690; 84145; 84484; 85025; 85610; 85730; 86308; 86644; 86664; 86665; 86706; 86709; 87040; 87389; 87522; 87804; 93005; 93306; 93971; 96365; 96367; 99285; G0008; G0378; J2543; J7030; Q2035; Q9967